=== PATIENT | male | born 1950 | race Two or more races ===

== ENCOUNTER → 2022-03-31 | Outpatient (CLI) | payer OTHER ==
[2022-03-31 08:37] LABS: Basophils # (auto) 0 10 ^3/uL (0-0.2); Basophils % (auto) 0.7 % (0.0-2.0); Eosinophils # (auto) 0.4 10 ^3/uL (0-0.8); Eosinophils % (auto) 8.1 % (0.0-7.0); Hematocrit 45.2 % (41.0-53.0); Hemoglobin 15.2 g/dL (13.5-17.5); Lymphocytes % (auto) 21.3 % (10.0-50.0); Mean Corpuscular Hemoglobin 30.3 pg (28.0-32.0); Mean Corpuscular Hgb Conc. 33.7 g/dL (32.0-36.0); Monocytes # (auto) 0.4 10 ^3/uL (0-1.3); Monocytes % (auto) 8.7 % (0.0-12.0); Neutrophils % (auto) 61.2 % (37.0-80.0); Red Blood Cells 5.02 10^6/uL (4.5-5.90); Red Cell Distribution Width 14.2 % (11.8-14.3); White Blood Cell 4.9 10^3/uL (4.4-10.8)
[2022-03-31 09:13] LABS: BUN/Creatinine Ratio 17.1; Potassium 4.1 mmol/L (3.5-5.1)
[2022-03-31 09:14] LABS: Albumin 3.6 g/dL (3.4-5.0); Calcium 8.6 mg/dL (8.5-10.1)
[2022-03-31 09:18] LABS: Bilirubin, Total 0.8 mg/dL (0.2-1.0); Total Protein 6.9 g/dL (6.4-8.2)
[2022-03-31 09:28] LABS: Free T4 (Free Thyroxine) 1.22 ng/dL (0.89-1.76); Prostate Specific Antigen 1.78 ng/mL (0.0-4.0)
== END | disposition home or self-care (01) ==
LOC: LAB 08:24
PROVIDERS: ATTEND Nurse Practitioner Family
DX: I10 Essential (primary) hypertension (principal); F41.9 Anxiety disorder, unspecified; R35.1 Nocturia
CPT/HCPCS: 36415; 80053; 80061; 84153; 84439; 84443; 85025

== ENCOUNTER 2023-05-02 07:24 | Inpatient (IN) | payer BC, OTHER ==
[~2023-05-02] VITALS: Ht 177.8 cm; Wt 86.2 kg
[2023-05-02 08:09] LABS: Basophils # (auto) 0 10 ^3/uL (0-0.2); Basophils % (auto) 0.8 % (0.0-2.0); Eosinophils # (auto) 0.4 10 ^3/uL (0-0.8); Eosinophils % (auto) 7.4 % (0.0-7.0); Hematocrit 45.1 % (41.0-53.0); Hemoglobin 14.9 g/dL (13.5-17.5); Lymphocytes % (auto) 19.4 % (10.0-50.0); Mean Corpuscular Hemoglobin 30.5 pg (28.0-32.0); Mean Corpuscular Hgb Conc. 33.1 g/dL (32.0-36.0); Mean Corpuscular Volume 92.1 fL (80.0-100.0); Monocytes # (auto) 0.4 10 ^3/uL (0-1.3); Monocytes % (auto) 7.7 % (0.0-12.0); Neutrophils # (auto) 3.3 10 ^3/uL (1.6-8.6); Neutrophils % (auto) 64.7 % (37.0-80.0); Nucleated Red Blood Cells % 0.1 %; Red Blood Cells 4.89 10^6/uL (4.5-5.90); Red Cell Distribution Width 14.2 % (11.8-14.3); White Blood Cell 5.1 10^3/uL (4.4-10.8)
[2023-05-02 08:24] LABS: Alanine Aminotransferase 23 U/L (7-40); Albumin 4.1 g/dL (3.2-4.8); Alkaline Phosphatase 81 U/L (46-116); Anion Gap 6 (5-15); Aspartate Aminotransferase 25 U/L (13-40); BUN/Creatinine Ratio 20.8 (10.0-20.0); Blood Urea Nitrogen 27 mg/dL (9-23); Carbon Dioxide 31 mmol/L (20-30); Chloride 105 mmol/L (98-107); Glucose 105 mg/dL (74-106); Potassium 3.4 mmol/L (3.5-5.1); Sodium 142 mmol/L (136-145)
[2023-05-02 08:25] LABS: Bilirubin, Total 0.9 mg/dL (0.2-1.0); Total Protein 6.3 g/dL (5.7-8.2)
[2023-05-02 10:17] LABS: Triglycerides 61 mg/dL (< 150)
[2023-05-02 10:18] LABS: Cholesterol 160 mg/dL (< 200); LDL Cholesterol 93 mg/dL (< 100)
[2023-05-02 10:19] LABS: HDL Cholesterol 56 mg/dL (40-59)
[2023-05-02] MEDS: ASPirin 81 mg TAB PO SCH (11:23)
[2023-05-02 11:42] LABS: Amphetamine Screen, Urine Neg (NEGATIVE); Barbiturate Scree,Urine Neg (NEGATIVE); Benzodiazephine Screen, Urine Neg (NEGATIVE); Cannabinoid Screen, Urine Neg (NEGATIVE); Cocaine Screen, Urine Neg (NEGATIVE); Opiate Scree,Urine Neg (NEGATIVE); Phencyclidine Screen, Urine Neg (NEGATIVE)
[2023-05-02 11:44] LABS: Magnesium 1.9 mg/dL (1.6-2.6)
[2023-05-02 11:45] LABS: Phosphorus 3.1 mg/dL (2.4-5.1)
[2023-05-02] MEDS: METOPROLOL TARTRATE 1MG/1ML-5ML VIAL IV ONE (14:43)
[2023-05-02] MEDS: ASPirin-EC 325mg tab PO ONE (15:50)
[2023-05-02] MEDS: POTASSIUM EFFERVESENT TAB 25 MEQ PO ONE (15:50)
[2023-05-02 18:50] VITALS: PULSE 117; RESP 18; O2SAT 96
[2023-05-02] MEDS: ENOXAPARIN SOD 80 MG/0.8ML SYRINGE SC SCH (19:12)
[2023-05-02 19:30] VITALS: PULSE 93; RESP 13; O2SAT 96
[2023-05-02] MEDS: ATORVASTATIN 20 MG TAB PO SCH (21:35)
[2023-05-02] MEDS: METOPROLOL TARTRATE 25 MG TAB PO SCH (21:35)
[2023-05-02] MEDS ORDERED: APIXABAN 5 MG TAB PO SCH (22:00)
[2023-05-02] MEDS ORDERED: ATORVASTATIN 20 MG TAB PO SCH (22:00)
[2023-05-02 22:37] VITALS: BP 122/90; PULSE 86; RESP 20; TEMP 97.7
[2023-05-03] VITALS (10 sets, daily range): BP systolic 106–159; BP diastolic 64–102; PULSE 60–117; RESP 12–20; TEMP 97.6–97.8; O2SAT 97–100
[2023-05-03 07:06] LABS: RPR Non Reactive (Non Reactive)
[2023-05-03 07:25] LABS: Chloride 108 mmol/L (98-107); Potassium 3.7 mmol/L (3.5-5.1); Sodium 141 mmol/L (136-145)
[2023-05-03 07:26] LABS: Anion Gap 5 (5-15); Calcium 8.7 mg/dL (8.7-10.4); Carbon Dioxide 28 mmol/L (20-30)
[2023-05-03 07:30] LABS: Basophils # (auto) 0 10 ^3/uL (0-0.2); Basophils % (auto) 0.8 % (0.0-2.0); Eosinophils # (auto) 0.4 10 ^3/uL (0-0.8); Eosinophils % (auto) 9.8 % (0.0-7.0); Hematocrit 41.5 % (41.0-53.0); Hemoglobin 13.6 g/dL (13.5-17.5); Lymphocytes # (auto) 1.3 10 ^3/uL (0.4-5.4); Lymphocytes % (auto) 28.1 % (10.0-50.0); Mean Corpuscular Hemoglobin 30.3 pg (28.0-32.0); Mean Corpuscular Hgb Conc. 32.8 g/dL (32.0-36.0); Mean Corpuscular Volume 92.3 fL (80.0-100.0); Monocytes # (auto) 0.5 10 ^3/uL (0-1.3); Monocytes % (auto) 10.3 % (0.0-12.0); Neutrophils # (auto) 2.3 10 ^3/uL (1.6-8.6); Nucleated Red Blood Cells % 0.1 %; Red Cell Distribution Width 13.7 % (11.8-14.3); White Blood Cell 4.5 10^3/uL (4.4-10.8)
[2023-05-03 07:31] LABS: BUN/Creatinine Ratio 21.2 (10.0-20.0); Blood Urea Nitrogen 24 mg/dL (9-23); Glucose 91 mg/dL (74-106)
[2023-05-03 08:46] LABS: INR 1.14 (0.9-1.15); Partial Thromboplastin Time 39.2 SEC (24.5-34.5); Prothrombin Time 11.9 sec (9.3-11.8)
[2023-05-03] MEDS: ASPirin 81 mg TAB PO SCH (10:00)
[2023-05-03] MEDS ORDERED: LOSARTAN POTASSIUM 50 MG TAB PO SCH (10:00)
[2023-05-03] MEDS ORDERED: ENOXAPARIN SOD 40 MG/0.4 ML SYRINGE SC SCH (10:00)
[2023-05-03 10:57] LABS: Urine Bacteria NONE SEEN /hpf (None Seen); Urine Blood 2+ /uL (Negative); Urine Clarity Clear (Clear); Urine Color Colorless (Yellow); Urine Protein, UAD Negative (Negative); Urine Specific Gravity 1.013 (1.001-1.035); Urine Urobilinogen Normal (Negative); Urine WBC <1 /hpf (0 - 3); Urine pH 7.5 (5.0-8.0)
[2023-05-03] MEDS: MIDAZOLAM HCL 2MG/2ML 2ml VIAL (1mg/ml) IV ONE ×2 (13:40→13:49)
[2023-05-03] MEDS: LIDOCAINE VISCOUS 2% 15ML UD PO ONE (13:40)
[2023-05-03] MEDS: fentaNYL CITRATE 100 MCG/2 ML VL IV ONE (13:40)
[2023-05-03] MEDS: MIDAZOLAM HCL 2MG/2ML 2ml VIAL (1mg/ml) ONE (13:49)
[2023-05-04 05:24] VITALS: BP_SYST 115; BP_SYST 145; BP_DIAS 46; BP_DIAS 79; PULSE 65; PULSE 82; RESP 20; TEMP 98.2; TEMP 98.4; O2SAT 96; O2SAT 97
[2023-05-04 06:01] LABS: Basophils # (auto) 0 10 ^3/uL (0-0.2); Basophils % (auto) 0.7 % (0.0-2.0); Eosinophils # (auto) 0.4 10 ^3/uL (0-0.8); Eosinophils % (auto) 8.1 % (0.0-7.0); Hematocrit 43.9 % (41.0-53.0); Hemoglobin 14.9 g/dL (13.5-17.5); Lymphocytes # (auto) 1.1 10 ^3/uL (0.4-5.4); Lymphocytes % (auto) 22.1 % (10.0-50.0); Mean Corpuscular Hemoglobin 30.9 pg (28.0-32.0); Mean Corpuscular Hgb Conc. 33.9 g/dL (32.0-36.0); Mean Corpuscular Volume 91.3 fL (80.0-100.0); Monocytes # (auto) 0.4 10 ^3/uL (0-1.3); Monocytes % (auto) 8.1 % (0.0-12.0); Neutrophils # (auto) 3.1 10 ^3/uL (1.6-8.6); Nucleated Red Blood Cells % 0.1 %; Red Blood Cells 4.81 10^6/uL (4.5-5.90); Red Cell Distribution Width 13.7 % (11.8-14.3)
[2023-05-04 06:10] LABS: Chloride 107 mmol/L (98-107); Potassium 4.2 mmol/L (3.5-5.1); Sodium 141 mmol/L (136-145)
[2023-05-04 06:11] LABS: Anion Gap 5 (5-15); Carbon Dioxide 29 mmol/L (20-30)
[2023-05-04 06:12] LABS: Calcium 9.3 mg/dL (8.7-10.4)
[2023-05-04 06:16] LABS: Glucose 102 mg/dL (74-106)
[2023-05-04 06:17] LABS: BUN/Creatinine Ratio 13.9 (10.0-20.0); Blood Urea Nitrogen 15 mg/dL (9-23); Magnesium 1.9 mg/dL (1.6-2.6)
[2023-05-04 08:00] VITALS: PULSE 86
[2023-05-04 08:49] VITALS: BP 142/96; PULSE 63; RESP 18; TEMP 97.9; O2SAT 97
[2023-05-04] MEDS ORDERED: EMPAGLIFLOZIN 10 MG TAB PO SCH (10:30)
[2023-05-04] MEDS ORDERED: AMLO1TAB22 PO (11:05)
[2023-05-04] MEDS ORDERED: LOSA50TA46 PO (11:05)
[2023-05-04] MEDS ORDERED: HYDR25TA4 PO (11:05)
[2023-05-04] MEDS ORDERED: SACU1TAB PO (11:31)
[2023-05-04] MEDS ORDERED: ATOR20TA50 PO (11:31)
[2023-05-04] MEDS ORDERED: EMPA1TAB PO (11:31)
[2023-05-04] MEDS ORDERED: MET25T PO (11:31)
[2023-05-04] MEDS ORDERED: SPIR25TA PO (11:31)
[2023-05-04] MEDS ORDERED: APIX2.5T PO (11:31)
[2023-05-04] MEDS ORDERED: FURO20TA3 PO (11:32)
[2023-05-04] MEDS ORDERED: ASPI-325 PO (11:34)
[2023-05-04] MEDS ORDERED: ATOR40TA52 PO (11:43)
[2023-05-04] MEDS: MAGNESIUM OXIDE 400 MG TAB PO ONE (12:39)
[2023-05-04] MEDS: SPIRONOLACTONE 25 MG TAB PO ONE (12:39)
[2023-05-04] MEDS: EMPAGLIFLOZIN 10 MG TAB PO SCH (12:39)
[2023-05-04] MEDS: SACUBITRIL-VALSARTAN 24mg/26mg TAB PO SCH (12:39)
[2023-05-04 12:42] VITALS: BP 126/87; PULSE 78; RESP 20; TEMP 98.6; O2SAT 97
[2023-05-04 13:39] VITALS: BP 118/80; PULSE 73; TEMP 37
[2023-05-04] MEDS ORDERED: APIXABAN 2.5 MG TAB PO SCH (22:00)
[2023-05-04] MEDS ORDERED: SACUBITRIL-VALSARTAN 24mg/26mg TAB PO SCH (22:00)
[2023-05-05] MEDS ORDERED: SPIRONOLACTONE 25 MG TAB PO SCH (10:00)
== END 2023-05-04 15:45 | disposition home or self-care (01) | DRG 64 ==
LOC: ER 07:24 → TELE 10:58 → TELE-WESTW 21:56
PROVIDERS: ADMIT Internal Medicine; ATTEND Internal Medicine
DX: I63.9 Cerebral infarction, unspecified (principal); I50.23 Acute on chronic systolic (congestive) heart failure; G81.91 Hemiplegia, unspecified affecting right dominant side; I11.0 Hypertensive heart disease with heart failure; I48.0 Paroxysmal atrial fibrillation; E87.6 Hypokalemia; G47.00 Insomnia, unspecified; Z79.82 Long term (current) use of aspirin; Z79.899 Other long term (current) drug therapy
CPT/HCPCS: 36415; 70450; 70551; 80048; 80053; 80061; 80307; 81001; 82962; 83735; 84100; 84443; 84484; 85025; 85610; 85730; 86592; 93005; 93306; 93312; 93886; 97110; 97163; 99152; 99291; G0378; J2250

== ENCOUNTER → 2023-06-27 | Outpatient (CLI) | payer OTHER ==
[~2023-06-27] MED LIST: APIX2.5T PO; ASPI-325 PO; ATOR40TA52 PO; EMPA1TAB PO; FURO20TA3 PO; MET25T PO; SACU1TAB PO; SPIR25TA PO
== END | disposition home or self-care (01) ==
LOC: XYW 10:39
PROVIDERS: ATTEND Student in an Organized Health Care Education/Training Program
DX: I50.21 Acute systolic (congestive) heart failure (principal); I48.0 Paroxysmal atrial fibrillation; I63.9 Cerebral infarction, unspecified
CPT/HCPCS: 78452; 93017; A9500

== ENCOUNTER 2024-07-29 08:23 | Outpatient (CLI) | payer OTHER ==
[2024-07-29 08:36] LABS: Basophils # (auto) 0 10 ^3/uL (0-0.2); Basophils % (auto) 0.6 % (0.0-2.0); Eosinophils # (auto) 0.3 10 ^3/uL (0-0.8); Hematocrit 44.4 % (41.0-53.0); Lymphocytes # (auto) 0.9 10 ^3/uL (0.4-5.4); Mean Corpuscular Hemoglobin 30.7 pg (28.0-32.0); Mean Corpuscular Hgb Conc. 33.9 g/dL (32.0-36.0); Mean Corpuscular Volume 90.8 fL (80.0-100.0); Monocytes # (auto) 0.4 10 ^3/uL (0-1.3); Monocytes % (auto) 7.6 % (0.0-12.0); Neutrophils # (auto) 3.6 10 ^3/uL (1.6-8.6); Neutrophils % (auto) 67.8 % (37.0-80.0); Nucleated Red Blood Cells % 0.1 %; Platelet Count (auto) 158 10^3/uL (140-450); Red Blood Cells 4.89 10^6/uL (4.5-5.90); Red Cell Distribution Width 13.9 % (11.8-14.3); White Blood Cell 5.2 10^3/uL (4.4-10.8)
[2024-07-29 09:05] LABS: Alanine Aminotransferase 27 U/L (7-40); Albumin 4.2 g/dL (3.2-4.8); Alkaline Phosphatase 91 U/L (46-116); Anion Gap 7 (5-15); Aspartate Aminotransferase 20 U/L (13-40); BUN/Creatinine Ratio 21.1 (10.0-20.0); Bilirubin, Total 1.1 mg/dL (0.2-1.0); Calcium 9.5 mg/dL (8.7-10.4); Carbon Dioxide 27 mmol/L (20-31); Cholesterol 135 mg/dL (< 200); Glucose 100 mg/dL (74-106); HDL Cholesterol 48 mg/dL (40-59); LDL Cholesterol 70 mg/dL (< 100); Potassium 4.1 mmol/L (3.5-5.1); Sodium 142 mmol/L (136-145); Total Protein 6.8 g/dL (5.7-8.2); Triglycerides 76 mg/dL (< 150)
[2024-07-29 09:10] LABS: Blood Urea Nitrogen 27 mg/dL (9-23); Chloride 108 mmol/L (98-107)
== END 2024-07-29 17:00 | disposition home or self-care (01) ==
LOC: LAB 08:23
PROVIDERS: ATTEND Nurse Practitioner Family
DX: I13.0 Hypertensive heart and chronic kidney disease with heart failure and stage 1 through stage 4 chronic kidney disease, or unspecified chronic kidney disease (principal); N18.31 Chronic kidney disease, stage 3a; I50.9 Heart failure, unspecified; I42.8 Other cardiomyopathies; Z00.01 Encounter for general adult medical examination with abnormal findings; Z79.899 Other long term (current) drug therapy
CPT/HCPCS: 36415; 80053; 80061; 84153; 84443; 85025